=== PATIENT | female | born 1965 | race Caucasian/White ===

== ENCOUNTER → 2016-09-30 | Outpatient (CLI) | payer BC | LOC: FIMAGING 14:04 | PROVIDERS: ATTEND Midwife | DX: Z30.431 Encounter for routine checking of intrauterine contraceptive device (principal) ==

== ENCOUNTER → 2016-10-16 | Outpatient (CLI) | payer BC | LOC: FIMAGING 16:07 | PROVIDERS: ATTEND Midwife | DX: T83.32XA Displacement of intrauterine contraceptive device, initial encounter (principal); K59.00 Constipation, unspecified ==